=== PATIENT | male | born 1975 | race Caucasian/White ===

== ENCOUNTER 2016-11-16 07:06 | Outpatient (CLI) | payer BC ==
[2016-11-16 07:57] LABS: ALT (SGPT) 25 U/L (0-55); AST (SGOT) 20 U/L (5-34); Albumin 4.8 g/dL (3.5-5.0); Alkaline Phosphatase 53 U/L (40-150); Anion Gap 12 mmol/L (10-20); BUN (Urea Nitrogen) 14 mg/dL (8.9-20.6); Bilirubin, Total 0.7 mg/dL (0.2-1.2); Calc. Creatinine Clearance 0 mL/min (70-130); Calcium 9.2 mg/dL (7.8-10.44); Carbon Dioxide 25 mmol/L (22-29); Cardiac Risk 3.6 (Less than 4.5); Chloride 108 mmol/L (98-107); Cholesterol 184 mg/dL (< 200 Desired); Estimated GFR-MDRD 87; Globulin 2.1 g/dL (2.4-3.5); Glucose 91 mg/dL (70-105); HDL Cholesterol 51 mg/dL (>60 Neg Risk); LDL Cholesterol, Calculated 103 mg/dL; Potassium 4.2 mmol/L (3.5-5.1); Protein, Total 6.9 g/dL (6.0-8.3); Sodium 141 mmol/L (136-145); Triglycerides 148 mg/dL (Less than 150)
== END 2016-11-16 07:07 | disposition home or self-care (01) ==
LOC: BURLAB 07:06
PROVIDERS: ATTEND Internal Medicine Cardiovascular Disease
DX: I10 Essential (primary) hypertension (principal)
CPT/HCPCS: 36415; 80053; 80061

== ENCOUNTER 2017-07-16 21:02 | Emergency (ER) | payer BC ==
[2017-07-16 21:37] LABS: Bilirubin Negative (Negative); Blood, Urine Negative (Negative); Clarity Clear (Clear); Glucose, Urine (Dipstick) Negative (Negative); Leukocyte Negative (Negative); Nitrite Negative (Negative); Protein, Urine (Dipstick) Negative (Neg-Trace); Specific Gravity, Urine 1.025 (1.005-1.030)
--- NOTE | 2017-07-16 22:58 | CT ---
ABDOMEN AND PELVIC CT SCAN WITHOUT IV CONTRAST: History: 41-year-old male with left flank pain. FINDINGS: The lung bases are clear. The liver, gallbladder, pancreas, spleen, and adrenal glands are unremarkab le. No renal calculus or acute obstruction. Normal appearing appendix. No bowel obstruction, absce ss, adenopathy, or abnormal fluid collection. IMPRESSION: No acute process in the abdomen or pelvis. No renal calculus or obstruction. Normal appearing appe ndix. POS: [facility]
== END 2017-07-16 22:27 | disposition home or self-care (01) ==
LOC: BURERS 21:02
DX: N20.0 Calculus of kidney (principal); E78.5 Hyperlipidemia, unspecified
CPT/HCPCS: 74176; 81003

== ENCOUNTER 2019-01-25 23:26 | Emergency (ER) | payer BC ==
[2019-01-25] MEDS ORDERED: Bacitracin 1 PK ONE (23:54)
[2019-01-25] MEDS ORDERED: Cephalexin 500 MG CAP ONE (23:54)
== END 2019-01-26 00:05 | disposition home or self-care (01) ==
LOC: BURERS 23:26
DX: S81.812A Laceration without foreign body, left lower leg, initial encounter (principal); I47.1 Supraventricular tachycardia; I49.9 Cardiac arrhythmia, unspecified; E78.5 Hyperlipidemia, unspecified; Z79.899 Other long term (current) drug therapy; W45.8XXA Other foreign body or object entering through skin, initial encounter
CPT/HCPCS: 12002